=== PATIENT | male | born 1980 | race Caucasian/White ===

== ENCOUNTER 2022-01-05 07:14 | Emergency (ER) | payer BC ==
[2022-01-05] MEDS ORDERED: ALPRAZolam 0.5 MG Tab PO ONE (07:49)
[2022-01-05 09:55] LABS: ACETAMINOPHEN <2.0 ug/mL; BLOOD UREA NITROGEN,BUN 7 mg/dL (7.0-18.0); CARBON DIOXIDE,CO2 27.2 mmol/L (21.0-32.0); CHLORIDE,CL 103 mmol/L (98-107); GLUCOSE RANDOM 103 mg/dL (74-106); POTASSIUM,K 3.9 mmol/L (3.5-5.1); SODIUM,NA 140 mmol/L (136-148)
[2022-01-05 09:57] LABS: ESTIMATED GFR 111 mL/min (>60)
== END 2022-01-05 09:56 | disposition home or self-care (01) ==
LOC: MW.ED 07:14
DX: F41.9 Anxiety disorder, unspecified (principal); F91.9 Conduct disorder, unspecified; R00.0 Tachycardia, unspecified; Z20.822 Contact with and (suspected) exposure to COVID-19
CPT/HCPCS: 36415; 80053; 80143; 80179; 80305; 80307; 84443; 85025; 87635; 93005; 99283; A9270; U0002